=== PATIENT | male | born 1945 | race Caucasian/White ===

== ENCOUNTER 2020-01-25 11:01 | Emergency (ER) | payer MEDICARE, SELFPAY ==
[2020-01-25 11:20] VITALS: BP 148/69; PULSE 97; RESP 14; TEMP 36.5; O2SAT 95
--- NOTE | 2020-01-25 11:27 | ED.EYEPROB ---
HPI - Eye Problem General Chief complaint: Eye Problems Stated complaint: Swollen Eye Time Seen by Provider: 01/25/20 11:27 Source: patient Mode of arrival: ambulatory Limitations: no limitations History of Present Illness HPI Narrative: 74-year-old man comes in today complaining of bilateral eye itching and yellow drainage and eyelid redness. He states the symptoms started in his right eye 5 days ago in the last couple of days it started in his left eye. He denies changes in vision, headache, fever, cough or cold symptoms, floaters, or recent sick exposures. Has a history of cataract surgery with implants MD chief complaint: eye redness Onset (ago): day(s) (5) Onset description: gradual Duration: constant Location: both eyes Eye Symptoms: itching Place: home Mechanism: none Severity: moderate Associated symptoms: none Treatments Prior to Arrival: none Related Data Allergies Allergy/AdvReac Type Severity Reaction Status Date / Time No Known Allergies Allergy Verified 01/25/20 11:19 Review of Systems Constitutional: Constitutional: Denies chills, Denies fatigue, Denies fever(s) and Denies weakness Eyes: Eyes: Reports as per HPI, Denies change in vision and Denies photophobia ENT: Denies dysphagia, Denies nasal congestion and Denies sore throat Cardiovascular: Cardiovascular: Denies chest pain and Denies radiating jaw, neck or arm pain Respiratory: Respiratory: Denies cough, Denies dyspnea and Denies wheezing Gastrointestinal: Gastrointestinal: Denies abdominal pain, Denies nausea and Denies vomiting Genitourinary: Genitourinary: Denies hematuria, Denies dysuria and Denies urinary frequency Neurologic: Denies vertigo, Denies dizziness and Denies syncope Endocrine: Endocrine: Denies polydipsia and Denies polyuria Hematologic/Lymphatic: Hematologic/Lymphatic: Denies easy bleeding and Denies easy bruising Allergic/Immunologic: Allergic/Immunologic: Denies lip swelling and Denies wheezing PMFSH Past Medical History Medical History Hypertension Type 2 diabetes mellitus Surgical History Surgical History History of phacoemulsification of cataract with intraocular lens implantation Social History Social History Smoking status: Former smoker Alcohol intake: former Substance use: never Exam Const: General: healthy appearing, no acute distress and alert Nutritional Appearance: obese Orientation/consciousness: patient oriented x3 HENMT: Ears: external ears normal, TM's normal bilaterally and EAC's normal Mouth: Yes Normal oral and palatal mucosa present and Yes moist mucous membranes Throat: posterior oropharynx normal and uvula midline Eyes: Conjunctivae: conjunctivae normal Pupils: Equal, round and reactive pupils present EOM: EOMs intact bilaterally Resp: Effort & Inspection: normal respiratory effort and labored Auscultation: clear to auscultation bilaterally, rales, rhonchi and wheezes Cardio: Rate: regular rate Rhythm: regular rhythm Heart sounds: no murmurs Skin: General skin exam: normal color, no jaundice and no pallor Rashes: no rashes Neuro: General: No patient oriented x3, No moves all extremities, No no focal motor deficits and No CN's II-XI intact bilaterally Speech: normal speech Extrem: General: normal to inspection and no clubbing, cyanosis or edema Psych: Appearance: grossly normal and well kempt Mental Status: mental status grossly normal Affect: normal affect Attitude: cooperative Thought content: Yes Normal thought content present Course Vital Signs Vital signs: Vital Signs Temperature 36.5 C 01/25/20 11:20 Pulse Rate 97 01/25/20 11:20 Respiratory Rate 14 01/25/20 11:20 Blood Pressure 148/69 H 01/25/20 11:20 Pulse Oximetry 95 01/25/20 11:20 Temperature 36.5 C 01/25/20 11
[2020-01-25 12:34] VITALS: RESP 15; O2SAT 97
== END 2020-01-25 12:35 | disposition home or self-care (01) ==
PROVIDERS: Emergency Provider Emergency Medicine
DX: H10.33 Unspecified acute conjunctivitis, bilateral (principal)
CPT/HCPCS: 99283

== ENCOUNTER 2024-09-13 13:56 | Emergency (ER) | payer MEDICARE, SELFPAY ==
[2024-09-13 14:00] VITALS: BP 140/82; PULSE 95; RESP 18; TEMP 36.2; O2SAT 98
--- NOTE | 2024-09-13 14:09 | ED.EYEPROB ---
HPI - Eye Problem General Chief complaint: Eye Problems Stated complaint: eye infection Time Seen by Provider: 09/13/24 14:04 History of Present Illness HPI Narrative: Pt awoke this morning with swelling and itching around right eye. Pt says eye feels fine and vision is fine but itches around eye. Pt says it has been watering for a couple of days. Pt denies FB exposure or trauma. Related Data Home Medications ?Medication ?Instructions ?Recorded ?Confirmed ?Last Taken ?Type atorvastatin 80 mg tablet 40 mg PO DAILY 01/25/20 01/25/20 Unknown History carboxymethylcellulose 0.5 1 drp ophthalmic (eye) HS 01/25/20 01/25/20 Unknown History %-glycerin 0.9 % eye drops (Lubricating Drops) glipizide 10 mg tablet 10 mg PO BID 01/25/20 01/25/20 Unknown History insulin glargine 100 unit/mL 21 unit subcut HS 01/25/20 01/25/20 Unknown History subcutaneous solution ipratropium 20 mcg-albuterol 100 1 puff inhalation Q4H PRN 01/25/20 01/25/20 Unknown History mcg/actuation mist for inhalation Shortness Of Breath metformin 1,000 mg tablet 1,000 mg PO BID 01/25/20 01/25/20 Unknown History Allergies Allergy/AdvReac Type Severity Reaction Status Date / Time amoxicillin (From Augmentin) Allergy Rash Verified 09/13/24 14:02 clavulanic acid (From Allergy Rash Verified 09/13/24 14:02 Augmentin) Review of Systems Review of Systems: All systems reviewed & are unremarkable except as noted in HPI and below PMFSH Past Medical History Medical History (Updated 09/13/24 @ 14:08 by Mckenna Reynoso III, DO) Hypertension Type 2 diabetes mellitus Surgical History Surgical History History of phacoemulsification of cataract with intraocular lens implantation Social History Social History Smoking status: Former smoker Alcohol intake: former Substance use: never Exam Const: General: healthy appearing and no acute distress Nutritional Appearance: well nourished Orientation/consciousness: patient oriented x3 Limitations: no limitations Eyes: Conjunctivae: conjunctivae normal Pupils: Equal, round and reactive pupils present EOM: EOMs intact bilaterally Direct Ophthalmoscopy: no photophobia Other: mild periorbital swelling no significant erythema Resp: Effort & Inspection: normal respiratory effort Auscultation: clear to auscultation bilaterally Cardio: Rate: regular rate Rhythm: regular rhythm Course Vital Signs Vital signs: Vital Signs Temperature 97.2 F L 09/13/24 14:00 Pulse Rate 95 09/13/24 14:00 Respiratory Rate 18 09/13/24 14:00 Blood Pressure 140/82 09/13/24 14:00 Pulse Oximetry 98 09/13/24 14:00 Oxygen Delivery Room Air 09/13/24 14:00 Temperature 97.2 F L 09/13/24 14:00 Pulse Rate 95 09/13/24 14:00 Respiratory Rate 18 09/13/24 14:00 Blood Pressure 140/82 09/13/24 14:00 Pulse Oximetry 98 09/13/24 14:00 Oxygen Delivery Room Air 09/13/24 14:00 MDM - Eye Problem MDM Narrative Medical decision making narrative: appears allergic rather dion infectious in nature. will prescribe optivar drops and follow up with pcp. Discharge Plan Discharge Clinical Impression: Acute allergic conjunctivitis of right eye Patient Disposition: Home, Self-Care Condition: Stable Instructions: Antibiotic Form, Conjunctivitis (ED) Patient Language: [place] Citizen Prescriptions: New azelastine 0.05 % drops 1 drp RIGHT EYE BID Qty: 6 0RF No Action ciprofloxacin HCl [Ciloxan] 0.3 % drops See Rx Instructions .ROUTE .COMPLEX Qty: 2.5 0RF Rx Instructions: put 1-2 drps in affected eye(s) every 2hr up to 8 times/day x2days; then 4 times/day x5days atorvastatin 80 mg Tablet 40 mg PO DAILY insulin glargine 100 unit/mL Solution 21 unit SUBCUT HS glipizide 10 mg Tablet 10 mg PO BID metformin 1,000 mg Tablet 1,000 mg PO BID Lubricating Drops 0.5-0.9 % Drops 1 drp OPHTHALMIC (EYE) HS ipratropium-albuterol 20-100 mcg/actuation Mist 1 puff INHALATION Q4H PRN (Reason: Shortness Of Breath) Follow-up/Referrals: [facility] [Primary Care Provider] -
--- NOTE | 2024-09-13 14:16 | PC.NURSE ---
AWAITING REGISTRATION FOR DC
== END 2024-09-13 14:28 | disposition home or self-care (01) ==
LOC: CHSED 14:21
PROVIDERS: Emergency Provider Emergency Medicine
DX: H10.31 Unspecified acute conjunctivitis, right eye (principal); E11.9 Type 2 diabetes mellitus without complications; I10 Essential (primary) hypertension; Z87.891 Personal history of nicotine dependence
CPT/HCPCS: 99283

== ENCOUNTER 2025-09-12 13:47 | Observation (INO) | payer MEDICARE, SELFPAY ==
--- NOTE | ~2025-09-12 | CT_ITS ---
EXAMINATION: CT orbit BI wo con DATE: 09/12/2025 15:05 INDICATION: Right-sided orbital cellulitis TECHNIQUE: Computed tomography (CT) of the bilateral orbits was performed without intravenous contrast. Automated exposure control and iterative reconstruction technique were employed. The dose-length product was 197.00 mGy-cm. COMPARISON: None FINDINGS: Skin thickening and prominent subcutaneous and presacral edema at the right orbit consistent with cellulitis. No post septal inflammatory stranding or abscess. Changes of bilateral intraocular lens replacement. Mucous retention cyst in the right maxillary sinus. Rightward deviation of the nasal septum with right-sided spike which parallels the contours of the turbinates suggests this is developmental. Impacted left maxillary molar. Maxilla is otherwise identical as. IMPRESSION: 1. Preseptal cellulitis at the right orbit. No post septal cellulitis or abscess. Reviewed, dictated and finalized at location A. [facility] IMPRESSION: 1. Preseptal cellulitis at the right orbit. No post septal cellulitis or absces s.
[2025-09-12 13:49] VITALS: BP 146/83; PULSE 92; RESP 18; TEMP 36.5; O2SAT 99
--- NOTE | 2025-09-12 14:31 | ED.EYEPROB ---
HPI - Eye Problem General Chief complaint: Eye Problems Stated complaint: Swollen R. Eye Time Seen by Provider: 09/12/25 13:49 Source: patient Mode of arrival: ambulatory Limitations: no limitations History of Present Illness HPI Narrative: Patient is an 80-year-old male with right eye swelling and redness for the past day. His eye is swollen shut with some pus as well in the area. Minimal pain. Vision not overly decreased but is decreased due to the swelling and unable to open the eyelid. chief complaint: other (Eyelid swelling right side with redness) Onset (ago): day(s) (2) Onset description: gradual and awoke with symptoms Duration: constant and progressively worsening Location: right eye Eye Symptoms: redness, foreign body sensation and decreased vision (To functionality of the swelling of the lids) Place: home Mechanism: none Severity: moderate Severity scale (1-10): 4 If Pain, Quality: burning and other (Foreign body sensation) Context: sore throat Associated symptoms: none Treatments Prior to Arrival: none Related Data Patient tetanus UTD: No (Unknown; no open wounds) Home Medications ?Medication ?Instructions ?Recorded ?Confirmed ?Last Taken ?Type atorvastatin 80 mg tablet 40 mg PO DAILY 01/25/20 01/25/20 Unknown History glipizide 10 mg tablet 10 mg PO BID 01/25/20 01/25/20 Unknown History insulin glargine 100 unit/mL 21 unit subcut HS 01/25/20 01/25/20 Unknown History subcutaneous solution ipratropium 20 mcg-albuterol 100 1 puff inhalation Q4H PRN 01/25/20 01/25/20 Unknown History mcg/actuation mist for inhalation Shortness Of Breath metformin 1,000 mg tablet 1,000 mg PO BID 01/25/20 01/25/20 Unknown History Allergies Allergy/AdvReac Type Severity Reaction Status Date / Time amoxicillin (From Augmentin) Allergy Rash Verified 09/12/25 13:47 clavulanic acid (From Allergy Rash Verified 09/12/25 13:47 Augmentin) Review of Systems Review of Systems: All systems reviewed & are unremarkable except as noted in HPI and below Constitutional: Constitutional: Reports no additional constitutional complaints Eyes: Eyes: Reports no additional eye complaints ENT: Reports system reviewed and no additional complaints, except as documented Cardiovascular: Cardiovascular: Reports no additional cardiovascular complaints Respiratory: Respiratory: Reports no additional respiratory complaints Gastrointestinal: Gastrointestinal: Reports no additional gastrointestinal complaints Genitourinary: Genitourinary: Reports no additional male genitourinary complaints Musculoskeletal: Musculoskeletal: Reports no additional musculoskeletal complaints Integumentary/Breasts: Skin/Breast: Reports system reviewed and no additional complaints, except as docu Neurologic: Reports system reviewed and no additional complaints, except as documented Psychiatric: Psychiatric: Reports no additional psychiatric complaints Endocrine: Endocrine: Reports no additional endocrine complaints Hematologic/Lymphatic: Hematologic/Lymphatic: Reports no additional hematologic/lymphatic complaints Allergic/Immunologic: Allergic/Immunologic: Reports no additional allergic/immunologic complaints [facility] Past Medical History Medical History (Updated 09/12/25 @ 15:31 by William Abdalla MD) Hypertension Type 2 diabetes mellitus Surgical History Surgical History History of phacoemulsification of cataract with intraocular lens implantation Social History Social History Smoking status: Former smoker Alcohol intake: former Substance use: never Exam Const: General: healthy appearing Nutritional Appearance: well nourished Orientation/consciousness: patient oriented x3 HENMT: Head: normal to inspection Ears: external ears normal Face/Nose/Sinus: Normal external nose present Eyes: Conjunctivae: abnormal conjunctivae Pupils: Equal, round and reactive pupils present EOM: EOMs intact bilaterally Direct Ophthalmoscopy: photophobia Other: Right eyelid has erythema of the upper and lower of the lids with puffiness and swelling below the lid on the right; the eyelid is completely swollen shut and the I can barely be pulled apart to look in look out from the eyeball; there is matted thick mucus and pus stuck to the eyelid as well; conjunctiva appears white and normal; no eyeball pain Neck: Neck: normal visual inspection Chest: Chest palpation & inspection: normal inspection of the chest Resp: Effort & Inspection: normal respiratory effort and not labored Auscultation: clear to auscultation bilaterally and no crackles Cardio: Rate: regular rate Rhythm: regular rhythm Heart sounds: no murmurs GI: Inspection: non-distended Auscultation: normal bowel sounds : General: Yes bladder normal to palpation Back/Spine/Pelvis: Back: no CVA tenderness Skin: General skin exam: normal color Rashes: no rashes Wounds: no wounds Neuro: General: patient oriented x3, moves all extremities and no meningeal signs Speech: normal speech Gait exam (Neuro): Normal gait present Extrem: General: normal to inspection Psych: Mental Status: mental status grossly normal Affect: normal affect Attitude: cooperative Course Vital Signs Vital signs: Vital Signs Temperature 36.5 C 09/12/25 13:49 Pulse Rate 92 09/12/25 13:49 Respiratory Rate 18 09/12/25 13:49 Blood Pressure 146/83 H 09/12/25 13:49 Pulse Oximetry 99 09/12/25 13:49 Oxygen Delivery Room Air 09/12/25 13:49 Temperature 36.5 C 09/12/25 13:49 Pulse Rate 92 09/12/25 13:49 Respiratory Rate 18 09/12/25 13:49 Blood Pressure 146/83 H 09/12/25 13:49 Pulse Oximetry 99 09/12/25 13:49 Oxygen Delivery Room Air 09/12/25 13:49 [facility] Narrative Medical decision making narrative: Patient is an 80-year-old male with a right eye swelling and pus correlating with either periorbital cellulitis/preseptal cellulitis or orbital cellulitis. CT scan of the orbits. Final diagnosis is periorbital cellulitis only in the right eye. Due to the fact that is such a significant appearance we will admit the patient for the night observation. Hospitalist accepted. He will get vancomycin and Levaquin. For Differential Diagnosis Differential Diagnosis: Periorbital/preseptal cellulitis of the orbit eyelid, orbital cellulitis Lab Data [facility] Lab Attestation statement: I personally reviewed the patient's lab results. Imaging Data Attestation: I personally reviewed and interpreted this imaging study as follows: Radiologist's impression: ITS Impressions Orbit CT 09/12/25 15:13 IMPRESSION: 1. Preseptal cellulitis at the right orbit. No post septal cellulitis or abscess. Discharge Plan Discharge Clinical Impression: Preseptal cellulitis of right eye Patient Disposition: Acute Care Hospital [facility] Condition: Stable Time of Disposition: 15:54
--- OUTSIDE RECORDS SUMMARY | 2025-09-12 15:54 | XMS_ITS | Clinical Summary ---
Author Organization [facility] Address [address] [place] [address] Care Team Providers Care Oceanographer Physical Name Role Phone Dena Glasgow MD Primary Care Provider Medications metFORMIN ER, OSM, (FORTAMET) 500 MG 24 hr tablet Take 2 tablets (1,000 mg total) by mouth 2 (two) times daily with meals. Active glipiZIDE (GLUCOTROL) 10 MG tablet Take 1 tablet (10 mg total) by mouth 2 (two) times daily before meals. Active atorvastatin (LIPITOR) 10 MG tablet Take 4 tablets (40 mg total) by mouth nightly at bedtime. Active lisinopril (PRINIVIL) 10 MG tablet Take 2 tablets (20 mg total) by mouth daily. Active azelastine (OPTIVAR) 0.05 % ophthalmic solution Place 1 drop into the right eye 2 (two) times daily. Active insulin glargine (LANTUS) 100 UNIT/ML injection (PEN) Inject 28 Units into the skin every morning. Active HYDROcodone-shanda taminophen (NORCO) 5-325 MG tabletIndicatio ns:Acute Pain < 7 Day Supply Take 1 tablet by mouth every 4 (four) hours as needed. Indications: Acute Pain < 7 Day Supply 15 tablet 10/09/2024 Active Active Problems Problem Noted Date Diagnosed Date Back pain 10/08/2024 Social History Tobacco Use Types Packs/Day Years Used Date Smoking Tobacco: Former Cigarettes Smokeless Tobacco: Never Tobacco Cessation:Counseling Given: Not Answered Alcohol Use Standard Drinks/Week Comments Not Currently 0 (1 standard drink = 0.6 oz pur e alcohol) [facility] Utilities Answer Date Recorded In the past 12 months has th e electric, gas, oil, or water company threatened to shut off services in your home? No 10/08/2024 Humiliation, Afraid, Rape, and Kick questionnair e Answer Date Recorded Within the last year, have y ou been afraid of your partner or ex-partner? No 10/08/2024 Within the last year, have y ou been humiliated or emotionally abused in other ways by your partner or ex-partner? No Within the last year, have y ou been kicked, hit, slapped, or otherwise physically hurt by your partner or ex-partner? No 10/08/2024 Within the last year, have y ou been raped or forced to have any kind of sexual activity by your partner or ex-partner? No 10/08/2024 Overall Financial Resource Strain (CARDIA) Answe r Date Recorded How hard is it for you to pa y for the very basics like food, housing, medical care, and heating? Not hard at all 10/08/2024 [facility] - Occupational Stress Questionnaire Answer Date Recorded Do you feel stress - tense, restless, nervous, or anxious, or unable to sleep at night because your mind is troubled all the time - these days? Not at all 10/08/2024 Hunger Vital Sign Answer Date Recorded Within the past 12 months, y ou worried that your food would run out before you got the money to buy more. Never true 10/08/19 25 Within the past 12 months, t he food you bought just didn't last and you didn't have money to get more. Never true 10/08/2024 PRAPARE - Transportation Answer Date Re corded In the past 12 months, has l ack of transportation kept you from medical appointments or from getting medications? No 09/28 In the past 12 months, has l ack of transportation kept you from meetings, work, or from getting things needed for daily living? No 10/08/2024 Housing Stability Vital Sign Answer Angel e Recorded In the last 12 months, was t here a time when you were not able to pay the mortgage or rent on time? No 10/08/2024 In the past 12 months, how m any times have you moved where you were living? 0 10/08/2024 At any time in the past 12 m [facility], were you homeless or living in a mcc (including now)? 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 Gender Identity Not on file Sexual Orientation Not on file Last Filed Vital Signs Vital Sign Reading Time Taken Comments Blood Pressure 179/79 01/09/2025 1:34 PM CDT Pulse 66 01/09/2025 1:34 PM CDT Temperature 36.5 C (97.7 F) 01/09/2025 11:29 AM CDT Respiratory Rate 18 01/09/2025 1:34 PM CDT Oxygen Saturation 93% 01/09/2025 1:34 PM CDT Inhaled Oxygen Concentration - - Weight 88.1 kg (194 lb 4 oz) 01/09/2025 11:29 AM CDT Height 180.3 cm (5' 11) 01/09/2025 11:29 AM CDT Body Mass Index 27.09 01/09/2025 11:29 AM CDT Plan of Treatment Health Maintenance Due Date Last Done Comments DTaP, Tdap and Td Vaccines (1 - Tdap) 1963 Pneumococcal Vaccine: 50+ Years (1 of 1 - PCV) 1994 Zoster Vaccines (1 of 2) 1994 Annual Medicare Wellness Visit 2009 COVID-19 Vaccine ( season) 2025 06/17/2024, 09/16/2023, 02/21/2022, Additional history exists Influenza Adult (#1) 2025 06/17/2024, 07/07/2022, 06/10/2021, Additional history exists RSV Immunization or 60+ Years Completed 09/16/2023 Hepatitis A Vaccines Aged Out No long er eligible based on patient's age to complete this topic Meningococcal B Vaccine Aged Out No l onger eligible based on patient's age to complete this topic Meningococcal Vaccine Aged Out No lola nora eligible based on patient's age to complete this topic RSV Immunizations Under 20 Months Aged Out No longer eligible based on patient's age to complete this topic Insurance MEDICARE [facility] Advance Directives * Full Code (Latest Code Status on File) Date Activated Date Inactivated Comments 10/08/2024 4:53 PM 10/09/2024 5:33 PM Care Teams Oceanographer Physical Relationship Specialty Start Date End Date Dena Glasgwo MD [address] [place] [address] PCP - General INTERNAL MEDICINE 10/08/24
[2025-09-12 16:14] LABS: Hematocrit 40.9 % (37.0-46.0); Hemoglobin 12.6 g/dL (12.4-15.3); Immature Granulocyte Percent A 0.4 % (0.0-0.0); Lymphocytes Absolute Auto 2.26 K/mm3 (1.10-4.50); Mean Corpuscular HGB Conc 30.8 g/dL (32-36); Mean Corpuscular Hemoglobin 26.4 pg (27.0-31.0); Mean Corpuscular Volume 85.7 fL (78.0-102.0); Nucleated Red Blood Cells Absolute Auto 0.00 K/mm3 (0.00-0.00); Nucleated Red Blood Cells Perc 0.0 % (0-0.0); Platelet Count Result 169 K/mm3 (150-420); Red Blood Count 4.77 M/mm3 (4.70-6.10); White Blood Count 7.8 K/mm3 (4.8-10.8)
[2025-09-12] MEDS: levoFLOXacin 500 MG/D5W 100 ML 500 MG/100 ML BAG 100 MG IVPB (16:14)
[2025-09-12 16:15] VITALS: BP 147/79; PULSE 88; RESP 18; O2SAT 96
[2025-09-12 16:25] LABS: Alanine Aminotransferase 21 U/L (6-50); Albumin Level 4.8 g/dL (3.5-5.1); Alkaline Phosphatase 82 U/L (38-126); Anion Gap 14 mmol/L (4-12); Aspartate Amino Transferase 25 U/L (17-59); Bilirubin,Total 0.4 mg/dL (0.2-1.3); Blood Urea Nitrogen 48 mg/dL (9-20); CRP < 0.5 mg/dL (<1.0); Calcium 9.3 mg/dL (8.4-10.2); Carbon Dioxide 19 mmol/L (22-30); Chloride 106 mmol/L (98-107); Estimated CRCL calculation 25 ml/min; Estimated Glomerular Filt Rate 28; Glucose 116 mg/dL (65-110); Osmolality Calculated 301 mOsm/kg (285-295); Sodium 139 mmol/L (137-145); Total Protein 8.4 g/dL (6.3-8.2)
[2025-09-12 16:27] VITALS: BMI 25.8
[2025-09-12 16:27] LABS: Potassium 6.2 mmol/L (3.4-5.0)
[2025-09-12 16:28] VITALS: BP 126/61; PULSE 81; RESP 17; TEMP 36.1; O2SAT 97
--- NOTE | 2025-09-12 16:37 | ADMGEN ---
This patient, Jim Smallwood, was admitted to 2nd Floor Room 210-1. Patient oriented to hospital policies and general routines including ID bracelet, bed and alarms, visiting hours, pain management, procedures, bathroom and other care routines, personal items, smoking policy, room service/diet, and visiting hours. Information on how to activate the Rapid Response Team has been discussed. Patient encouraged to report perceived risks to care and to ask questions if they do not understand what they are told or what they should do.
[2025-09-12 16:47] VITALS: PULSE 81; RESP 17; O2SAT 97
--- OUTSIDE RECORDS SUMMARY | 2025-09-12 16:50 | XMS_ITS | Clinical Summary ---
Author Organization [facility] Address [address] [place] [address] Care Team Providers Care Rotary Cutter Feeder Name Role Phone Dena Glasgow MD Primary [...] drink = 0.6 oz pur e alcohol) [facility] Utilities Answer Date Recorded In the past [...] and heating? Not hard at all 10/08/2024 [facility] - Occupational [...] any time in the past 12 m [facility], were you homeless or living in a residential (including now)? 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
[2025-09-12 17:21] LABS: Anion Gap 16 mmol/L (4-12); Blood Urea Nitrogen 49 mg/dL (9-20); Calcium 9.1 mg/dL (8.4-10.2); Carbon Dioxide 16 mmol/L (22-30); Chloride 106 mmol/L (98-107); Estimated CRCL calculation 26 ml/min; Estimated Glomerular Filt Rate 29; Glucose 124 mg/dL (65-110); Osmolality Calculated 300 mOsm/kg (285-295); Sodium 138 mmol/L (137-145)
[2025-09-12 17:23] LABS: Potassium 6.1 mmol/L (3.4-5.0)
[2025-09-12] MEDS: SODIUM CHLORIDE 0.9% IV 1,000 ML 999 ML IV CONT (18:13)
[2025-09-12] MEDS: DEXTROSE 50% 25 GM/50 ML SYRINGE IV PUSH (18:20)
[2025-09-12] MEDS: FUROSEMIDE INJ 40 MG/4 ML VIAL 20 MG IV PUSH (18:21)
[2025-09-12] MEDS: INSULIN HUMAN REGULAR (*BKC) 1,000 UNITS/10 ML VIAL 10 UNITS IV PUSH (18:26)
[2025-09-12] MEDS: VANCOMYCIN 1,250 MG/NS 250 ML 1,250 MG/250 ML BAG 166.67 MG IVPB (18:26)
[2025-09-12 18:42] LABS: Anion Gap 12 mmol/L (4-12); Blood Urea Nitrogen 48 mg/dL (9-20); Calcium 8.7 mg/dL (8.4-10.2); Carbon Dioxide 18 mmol/L (22-30); Chloride 104 mmol/L (98-107); Estimated CRCL calculation 27 ml/min; Estimated Glomerular Filt Rate 31; Glucose 332 mg/dL (65-110); Osmolality Calculated 303 mOsm/kg (285-295); Sodium 134 mmol/L (137-145)
[2025-09-12 18:45] LABS: Potassium 6.4 mmol/L (3.4-5.0)
[2025-09-12 20:00] VITALS: PULSE 68
[2025-09-12] MEDS: TAMSULOSIN HCL 0.4 MG CAPSULE PO (20:17)
[2025-09-12 21:19] LABS: Anion Gap 11 mmol/L (4-12); Blood Urea Nitrogen 48 mg/dL (9-20); Calcium 8.8 mg/dL (8.4-10.2); Carbon Dioxide 19 mmol/L (22-30); Chloride 108 mmol/L (98-107); Estimated CRCL calculation 27 ml/min; Estimated Glomerular Filt Rate 30; Glucose 136 mg/dL (65-110); Osmolality Calculated 300 mOsm/kg (285-295); Potassium 5.7 mmol/L (3.4-5.0); Sodium 138 mmol/L (137-145)
[2025-09-12] MEDS: SODIUM ZIRCONIUM CYCLOSILICATE 5 GM POWD.PACK 10 GM PO (22:43)
[2025-09-12] MEDS: SODIUM CHLORIDE 0.9% IV 1,000 ML 100 ML IV CONT (22:48)
[2025-09-13] VITALS: BP 127/64; PULSE 68; PULSE 70; RESP 18; TEMP 36.1; O2SAT 94
[2025-09-13 04:00] VITALS: PULSE 66
[2025-09-13 05:23] LABS: Hematocrit 37.7 % (37.0-46.0); Hemoglobin 11.6 g/dL (12.4-15.3); Immature Granulocyte Percent A 0.3 % (0.0-0.0); Immature Platelet Fraction Pct 7.4 % (1.0-7.0); Lymphocytes Absolute Auto 1.57 K/mm3 (1.10-4.50); Mean Corpuscular HGB Conc 30.8 g/dL (32-36); Mean Corpuscular Hemoglobin 26.8 pg (27.0-31.0); Mean Corpuscular Volume 87.1 fL (78.0-102.0); Nucleated Red Blood Cells Absolute Auto 0.00 K/mm3 (0.00-0.00); Nucleated Red Blood Cells Perc 0.0 % (0-0.0); Platelet Count Result 96 K/mm3 (150-420); Red Blood Count 4.33 M/mm3 (4.70-6.10); White Blood Count 6.2 K/mm3 (4.8-10.8)
[2025-09-13 05:36] LABS: Alanine Aminotransferase 17 U/L (6-50); Albumin Level 3.9 g/dL (3.5-5.1); Alkaline Phosphatase 66 U/L (38-126); Anion Gap 14 mmol/L (4-12); Aspartate Amino Transferase 21 U/L (17-59); Bilirubin,Total 0.3 mg/dL (0.2-1.3); Blood Urea Nitrogen 46 mg/dL (9-20); Calcium 8.7 mg/dL (8.4-10.2); Carbon Dioxide 17 mmol/L (22-30); Chloride 111 mmol/L (98-107); Estimated CRCL calculation 28 ml/min; Estimated Glomerular Filt Rate 31; Glucose 80 mg/dL (65-110); Osmolality Calculated 304 mOsm/kg (285-295); Potassium 5.1 mmol/L (3.4-5.0); Sodium 142 mmol/L (137-145); Total Protein 6.7 g/dL (6.3-8.2)
[2025-09-13 08:00] VITALS: BP 144/65; PULSE 63; PULSE 66; RESP 20; TEMP 36.3; O2SAT 96
[2025-09-13] MEDS: SODIUM CHLORIDE 0.9% IV 1,000 ML 100 ML IV CONT (08:28)
[2025-09-13] MEDS: FERROUS SULFATE 325 MG TABLET BY MOUTH (08:30)
[2025-09-13] MEDS: ATORVASTATIN 40 MG TABLET PO (08:30)
[2025-09-13] MEDS: INSULIN GLARGINE (*BKC) 1,000 UNITS/10 ML VIAL 22 UNITS SUB-Q (08:42)
[2025-09-13] MEDS: NEOMYCIN/POLYMYXIN/DEXAMETH OP SUSP 5 ML BTL 2 DROP RIGHT EYE ×2 (10:21→13:03)
[2025-09-13] MEDS: SODIUM ZIRCONIUM CYCLOSILICATE 5 GM POWD.PACK 10 GM PO (10:21)
--- NOTE | 2025-09-13 11:02 | P.SS_ITS ---
Same Day Admit/Disch: HPI History of Present Illness Chief complaint: Swollen red right eye Narrative: Jim Smallwood is a 80 year old male who presented to the emergency department with complaints of swollen red eye. patient reported that he has had increased redness and worsening swelling to his right eye for the last few days. Patient did deny minimal pain and no visual changes. patient also denied any fevers, chills, shortness a breath chest pain nausea or vomiting. patient reported past medical history of HLD, anemia, diabetes, HTN, and BPH. patient denied any trauma to I but did report some sinus pressure prior to the development of his eye swelling and redness. In the ED: Patient with significant swelling and redness to the right eye, normal WBC, Cr 2.11 and potassium of 6.4 other labs unremarkable. Orbit CT shows preseptal cellulitis at the right orbit no postseptal cellulitis or abscess. Patient was started on Vanc and Levaquin in the emergency department as well as eyedrops and admitted to the medical unit overnight to monitor for improvement. [facility] Past Medical History Medical History Hypertension Type 2 diabetes mellitus Surgical History Surgical History History of phacoemulsification of cataract with intraocular lens implantation Social History Social History Smoking status: Never smoker Second hand tobacco smoke exposure: No Alcohol intake: never Substance use: never Substance use type: does not use Lack of Transportation: No Lack of Food: Never True Current Housing: I Have Housing Concerned About Future Housing: No Difficulty Paying Gas/Electric Bills: No Difficulty Paying for Meds: No Currently Unemployed: No Education: High School Diploma/GED Difficulty w/ Childcare or Family Care: No Spiritual care concerns: No Same Day Admit/Disch: Med Pre-admit Medications Home Medications ?Medication ?Instructions ?Recorded ?Confirmed ?Type atorvastatin 80 mg tablet 40 mg PO DAILY 01/25/2008/28 History glipizide 10 mg tablet 10 mg PO BID 01/25/20 History insulin glargine 100 unit/mL 27 unit subcut HS 0 09/12/25 History subcutaneous solution metformin 1,000 mg tablet 1,000 mg PO BID 01/25/20 History ferrous sulfate 325 mg (65 mg 325 mg PO DAILY 09/12/25 09/12/25 History iron) tablet lisinopril 20 mg tablet 20 mg PO DAILY 09/12/2508/28 History mecobalamin (vitamin B12) 5,000 5,000 mcg PO DAILY 09/12/25 History mcg disintegrating tablet tamsulosin 0.4 mg capsule 0.4 mg PO .pm 09/12/2509/12 History levofloxacin 750 mg tablet 750 mg PO Q48H #6 tabs 08/28 04/21 Rx nsnqkqfa-gqrngquci-fqfmdyvq 3.5 2 drp RIGHT EYE QID #5 mL 09/13/25 Rx mg/mL-10,000 unit/mL-0.1% eye drops Review of Systems Review of Systems All systems reviewed & are unremarkable except as noted in HPI and below Exam Const: General: comfortable and no acute distress Eyes: Visual Marcum: normal visual marcum by confrontation Periorbital: periorbital findings abnormal right periorbital swelling, periorbital tenderness and periorbital erythema Eyelids: eyelid abnormality right upper eyelid erythema and swelling Conjunctivae: conjunctival abnormality right discharge Cornea: corneas abnormal on the right Resp: Effort & Inspection: normal respiratory effort Auscultation: clear to auscultation bilaterally Cardio: Rate: regular rate Rhythm: regular rhythm GI: GI Palp: Yes Soft to palpation Auscultation: normal bowel sounds Other: rounded Skin: General skin exam: normal color and no rashes or lesions noted Wounds: no wounds Neuro: General: gait normal Speech: normal speech Motor exam (neuro): 5/5 motor strength present throughout Sensory Exam: normal sensation Extrem: General: normal to inspection Psych: Mental Status: mental status grossly normal Affect: normal affect DS: Data Data Completed and Pending Labs on day of discharge: Labs from last 24 hours 09/13/25 09/13/25 09/13/25 05:08 05:08 05:08 WBC RBC Hgb Hct MCV MCH MCHC RDW Plt Count MPV Immature Gran % (Auto) Neut % (Auto) Lymph % (Auto) [place] % (Auto) Eos % (Auto) Baso % (Auto) Lymph # (Auto) [place] # (Auto) Eos # (Auto) Baso # (Auto) Abs Immat Gran (auto) Absolute Neuts (auto) Absolute Nucleated RBC Nucleated RBC % % Immature Plt Fraction Sodium Potassium Chloride Carbon Dioxide Anion Gap BUN Creatinine 2.04 H Estim Creat Clear Calc 28 Cancelled Estimated GFR 31 L Cancelled Glucose 80 POC Capillary Glucose Calculated Osmolality 304 H Lactic Acid Calcium 8.7 Total Bilirubin 0.3 AST 21 ALT 17 Alkaline Phosphatase 66 C-Reactive Protein Total Protein 6.7 Albumin 3.9 09/13/25 09/12/25 09/12/25 05:08 21:01 20:33 WBC 6.2 RBC 4.33 L Hgb 11.6 L Hct 37.7 MCV 87.1 MCH 26.8 L MCHC 30.8 L RDW 13.8 Plt Count 96 L MPV 11.2 H Immature Gran % (Auto) 0.3 H Neut % (Auto) 59.1 Lymph % (Auto) 25.2 Sterling % (Auto) 8.5 Eos % (Auto) 5.9 Baso % (Auto) 1.0 Lymph # (Auto) 1.57 Sterling # (Auto) 0.53 Eos # (Auto) 0.37 Baso # (Auto) 0.06 Abs Immat Gran (auto) 0.02 H Absolute Neuts (auto) 3.67 Absolute Nucleated RBC 0.00 Nucleated RBC % 0.0 % Immature Plt Fraction 7.4 H Sodium 142 138 Potassium 5.1 H 5.7 H Chloride 111 H 108 H Carbon Dioxide 17 L 19 L Anion Gap 14 H 11 BUN 46 H 48 H Creatinine Cancelled 2.11 H Estim Creat Clear Calc 27 Estimated GFR 30 L Glucose 136 H POC Capillary Glucose 156 H Calculated Osmolality 300 H Lactic Acid Calcium 8.8 Total Bilirubin AST ALT Alkaline Phosphatase C-Reactive Protein Total Protein Albumin 09/12/25 09/12/25 09/12/25 18:25 17:01 16:08 WBC 7.8 RBC 4.77 Hgb 12.6 Hct 40.9 MCV 85.7 MCH 26.4 L MCHC 30.8 L RDW 13.9 Plt Count 169 MPV 10.6 Immature Gran % (Auto) 0.4 H Neut % (Auto) 58.2 Lymph % (Auto) 29.1 Sterling % (Auto) 6.8 Eos % (Auto) 4.6 Baso % (Auto) 0.9 Lymph # (Auto) 2.26 Sterling # (Auto) 0.53 Eos # (Auto) 0.36 Baso # (Auto) 0.07 Abs Immat Gran (auto) 0.03 H Absolute Neuts (auto) 4.52 Absolute Nucleated RBC 0.00 Nucleated RBC % 0.0 % Immature Plt Fraction Sodium 134 L 138 139 Potassium 6.4 H* 6.1 H* 6.2 H* Chloride 104 106 106 Carbon Dioxide 18 L 16 L 19 L Anion Gap 12 16 H 14 H BUN 48 H 49 H 48 H Creatinine 2.05 H 2.19 H 2.23 H Estim Creat Clear Calc 27 26 25 Estimated GFR 31 L 29 L 28 L Glucose 332 H 124 H 116 H POC Capillary Glucose Calculated Osmolality 303 H 300 H 301 H Lactic Acid 1.7 Calcium 8.7 9.1 9.3 Total Bilirubin 0.4 AST 25 ALT 21 Alkaline Phosphatase 82 C-Reactive Protein < 0.5 Total Protein 8.4 H Albumin 4.8 Imaging Attestation: I personally reviewed and interpreted this imaging study as follows: Radiologist's impression: EXAMINATION: CT orbit BI wo con DATE: 09/12/2025 15:05 INDICATION: Right-sided orbital cellulitis TECHNIQUE: Computed tomography (CT) of the bilateral orbits was performed without intravenous contrast. Automated exposure control and iterative reconstruction technique were employed. The dose-length product was 197.00 mGy- cm. COMPARISON: None FINDINGS: Skin thickening and prominent subcutaneous and presacral edema at the right orbit consistent with cellulitis. No post septal inflammatory stranding or abscess. Changes of bilateral intraocular lens replacement. Mucous retention cyst in the right maxillary sinus. Rightward deviation of the nasal septum with right-sided spike which parallels the contours of the turbinates suggests this is developmental. Impacted left maxillary molar. Maxilla is otherwise identical as. IMPRESSION: 1. Preseptal cellulitis at the right orbit. No post septal cellulitis or abscess. Reviewed, dictated and finalized at location A. TRUCTION JOB TITLES DS: Summary Hospital Course Reason for hospitalization: periorbital cellulitis Hospital Course: Admission: Jim Smallwood is a 80 year old male who presented to the emergency department with complaints of swollen red eye. patient reported that he has had increased redness and worsening swelling to his right eye for the last few days. Patient did deny minimal pain and no visual changes. patient also denied any fevers, chills, shortness a breath chest pain nausea or vomiting. patient reported past medical history of HLD, anemia, diabetes, HTN, and BPH. patient denied any trauma to I but did report some sinus pressure prior to the development of his eye swelling and redness. Hospital course: In the ED: Patient with significant swelling and redness to the right eye, normal WBC, Cr 2.11 and potassium of 6.4 other labs unremarkable. Orbit CT shows preseptal cellulitis at the right orbit no postseptal cellulitis or abscess. Patient was started on Vanc and Levaquin in the emergency department as well as eyedrops and admitted to the medical unit overnight to monitor for improvement. Patient seen the following day with overall improvement to symptoms swelling, erythema decreased with medication. Patient denied any visual changes and minimal pain. Patient was able to open his eye with minimal drainage. Labs were reviewed with normal WBC. Patient potassium was elevated on admission at 6.4 had received insulin and Lokelma with improvement to potassium at 5.1 did give patient 1 more dose of Lokelma. spoke with patient regarding his current diabetes medications and recommended discontinuation of his glipizide and metformin due to his chronic kidney disease reported he will follow-up with his primary care physician at the [facility] next month. patient has allergy to Augmentin he was discharged on oral Levaquin 750 mg every 48 hours for renal dosing. Patient acknowledged and agreed with discharge plan. patient feeling better with no acute distress or complaints at time of discharge. Status at Discharge Functional status at discharge: independent ambulation Overall status at discharge: patient is progressing back to baseline Time Spent with Patient Time attestation: Total time spent providing and/or coordinating discharge services: Time spent: Greater than 30 minutes DS: Admitting Diagnosis Discharge Date 09/13/2025 Admitting Diagnosis periorbital cellulitis DS: Discharge Diagnosis Discharge Diagnosis (1) Preseptal cellulitis of right eye: Code(s): L03.213 - Periorbital cellulitis Status: Acute (2) Type 2 diabetes mellitus: Code(s): E11.9 - Type 2 diabetes mellitus without complications Status: Acute (3) Hypertension: Code(s): I10 - Essential (primary) hypertension Status: Acute Discharge Plan Discharge Attending physician on discharge: Romario Crawford Consulting providers: Ayana Burch Discharging Clinician: Ayana Burch Anticipated Discharge Date/Time: 09/13/25 11:10 Patient Disposition: Home Activity: as tolerated Diet: diabetic Discharge Instructions: 1). periorbital cellulitis right eye * I have prescribed oral antibiotic please take as indicated and complete antibiotic therapy even if feeling better * I have also ordered some eyedrops to help with minimal pain * if at any time swelling worsens and visual changes occur seek medical attention 2). diabetes * I would recommend to discontinue your metformin and glipizide due to chronic kidney disease and recent hyperkalemia, recommend starting a sliding scale short-acting insulin with meals for replacement. This can be followed up with your primary care physician at the [facility] How can you care for yourself at home? ? Keep track of any new symptoms or changes in your symptoms. ? Rest until you feel better. ? Be safe with medicines. Take your medicines exactly as prescribed. Call your doctor if you think you are having a problem with your medicine. ? Do not drive after taking a prescription pain medicine. ? Ensure to follow-up with primary care physician as indicated and provide updated medication list provided to you at discharge. When should you call for help? Call 911 anytime you think you may need emergency care. For example, call if: ? You passed out (lost consciousness). Call your doctor now or seek immediate medical care if: ? You have new symptoms like fever, difficulty breathing, Chest pain, vomiting, or rash. ? You have new or different pain. ? You are confused and are having trouble thinking clearly. ? Your symptoms are getting worse. Watch closely for changes in your health, and be sure to contact your doctor if: ? You do not get better as expected. Patient Instructions: Antibiotic Form Patient Language: Chadian Stand Alone Forms: General Discharge Information Follow-up/Referrals: [facility] [Primary Care Provider, Medical] - Keep Reg. Scheduled Appt. Discharge Medications: New neomycin-polymyxin B-dexameth 3.5mg/mL-10,000 unit/mL-0.1 % Drops,Suspension 2 drp RIGHT EYE QID Qty: 5 0RF levofloxacin 750 mg tablet 750 mg PO Q48H Qty: 6 0RF Rx Instructions: Take one tablet every other day for 6 doses Continued atorvastatin 80 mg Tablet 40 mg PO DAILY insulin glargine 100 unit/mL Solution 27 unit SUBCUT HS glipizide 10 mg Tablet 10 mg PO BID tamsulosin 0.4 mg capsule 0.4 mg PO .pm lisinopril 20 mg tablet 20 mg PO DAILY mecobalamin (vitamin B12) 5,000 mcg tablet,disintegrating 5,000 mcg PO DAILY ferrous sulfate 325 mg (65 mg iron) tablet 325 mg PO DAILY Held metformin 1,000 mg Tablet 1,000 mg PO BID Hold Instructions: Resume on 09/16/25. Hold for 72 Date of admission: 09/12/25 15:50 Primary Care Provider: CHERRIE STRICKLANDKACY Admitting Provider: Romario Crawford Attending physician on admission: Romario Crawford Condition: Stable Quality -Patient's previous records reviewed on admission -ER notes reviewed in detail on admission -discussed all findings and current treatment plan with patient/Family/POA -Consultations reviewed for recommendations -Patient's disposition for safe discharge discussed with employment evaluator/case manager -radiology imaging, EKG and test results I have personally reviewed and interpreted unless otherwise specified Dictation performed by [employer] direct speech recognition software, therefore post secondary professional variants and typographical errors may occur. Hospitalist MIPS Advance Care Plan I have confirmed that the patient's Advanced Care Plan is present, code status is documented, or surrogate decision maker is listed in patient medical record.: Yes Medication Reconciliation I have utilized all available resources to obtain, update and review the patients current medications (includes all prescriptions, OTC, herbals, cannabis, and nutritional supplements).: Yes The patient is not eligible for med reconciliation; the patient is in a emergent medical situation where delaying treatment would jeopardize the patients health.: No Heart Failure (Exclusion) Patient has history of Heart Transplant or Left Ventricular Assistive Device?: No IF YES, STOP HERE Heart Failure (Qualifier) Patient has current or prior documentation of LVEF less than or equal to 40%, or mod/servere depressed LVSF?: No IF NO, STOP HERE
[2025-09-13 12:00] VITALS: PULSE 63
--- NOTE | 2025-09-13 13:20 | PC.NURSE ---
Dischargeinstructions reviewed with patient, patient verbalizes understanding. Patient dressed himself,taken bt wheelchair off floor to private vehicle
--- NOTE | 2025-09-15 09:37 | PC.NURSE ---
discharge call back complete, doing well, swelling less to eye, decreased the muscle milk and liquid IV he was taking due to elevated potassium, no questions regarding discharge instructions
== END 2025-09-13 13:20 | disposition home or self-care (01) ==
LOC: CHSED 15:31 → CHS2ND 15:54
PROVIDERS: Nurse Practitioner Adult Health; Admitting Provider Internal Medicine; Emergency Provider Emergency Medicine; Visit Provider Internal Medicine
DX: L03.213 Periorbital cellulitis (principal); E11.9 Type 2 diabetes mellitus without complications; I10 Essential (primary) hypertension; Z79.4 Long term (current) use of insulin; Z79.84 Long term (current) use of oral hypoglycemic drugs; Z87.891 Personal history of nicotine dependence; Z98.49 Cataract extraction status, unspecified eye; Z96.1 Presence of intraocular lens
CPT/HCPCS: 36415; 70480; 80048; 80053; 82948; 83605; 85025; 85055; 86140; 87040; 96361; 96366; 96367; 96375; 99285; A9270; G0378; J1815; J1938; J1956; J3373; J7030

== ENCOUNTER 2025-09-25 06:27 | Observation (INO) | payer MEDICARE, SELFPAY ==
[2025-09-25] VITALS (21 sets, daily range): BP systolic 103–172; BP diastolic 60–93; PULSE 80–109; RESP 12–25; TEMP 35.3–36.5; O2SAT 92–100; BMI 26.4
--- NOTE | ~2025-09-25 | CT_ITS ---
CT HEAD NON-CONTRAST CT C-SPINE Clinical History: FALL. CONFUSION Comparison: None Technique: Unenhanced axial images skull base to vertex. Coronal, sagittal reformats. Axial images thoracic inlet to skull base. Sagittal and coronal reformats. CT images acquired with automatic exposure control for dose reduction DLP: 681 mGy-cm Findings: Head: Mild white matter changes from chronic microvascular ischemic disease. Sulci, ventricles: Unremarkable. No intracerebral hemorrhage. No evidence acute territorial infarct. No mass effect, midline shift, intra-/extra-axial fluid collection. Bony calvarium intact. Visualized paranasal sinuses: Clear. Mastoid air cells: Clear. C-spine: No acute fracture or listhesis. Vertebral bodies normal height and alignment. Mild degenerative changes. Disc spaces maintained. Prevertebral soft tissues within normal limits. Visualized lung apices: Clear. Visualized thyroid: Unremarkable. No enlarged cervical nodes. IMPRESSION: HEAD: 1. No acute intracranial findings. C-SPINE: 1. No acute fracture. Reviewed, dictated and finalized at location R. T MANAGEMENT LEAD IMPRESSION: HEAD: 1. No acute intracranial findings. C-SPINE: 1. No acute fracture.
--- NOTE | ~2025-09-25 | XR_ITS ---
Examination: XR chest 1V portable Clinical History: FALL. CONFUSION. Comparison: None Technique: Portable AP Findings: Heart size normal. Streaky bibasilar atelectasis. No acute bony abnormality. IMPRESSION: 1. No significant acute cardiopulmonary findings given portable technique. Reviewed, dictated and finalized at location R. AL MOLD MAKER
--- NOTE | 2025-09-25 06:38 | ECG_ITS ---
Test Date: 2025-09-25 07:10:36 Measurements Intervals [place] Rate: 89 P: 0 MT: 0 QRS: -69 QRSD: 137 T: 53 QT: 360 QTc: 439 Interpretive Statements PROBABLY ATRIAL FIBRILLATION (SIGNIFICANT BASELINE ARTIFACT) RIGHT BUNDLE BRANCH BLOCK LEFT ANTERIOR FASCICULAR BLOCK BASELINE ARTIFACT- I, II, III, AVR, AVL, AVF, V1-V6 ABNORMAL ECG No previous ECG available for comparison Electronically Signed On 09-25-2025 09:01:46 POWDER OPERATOR by Ryan Steven D.O.
--- NOTE | 2025-09-25 06:48 | ED.AMS ---
HPI - Altered Mental Status General Chief Complaint: Altered Mental Status <William Abdalla MD - Last Filed: 09/25/25 07:07> Stated Complaint: fall & confusion <William Abdalla MD - Last Filed: 09/25/25 07:07> Time Seen by Provider: 09/25/25 06:38 <William Abdalla MD - Last Filed: 09/25/25 07:07> Source: patient and EMS <William Abdalla MD - Last Filed: 09/25/25 07:07> Mode of arrival: EMS <William Abdalla MD - Last Filed: 09/25/25 07:07> Limitations: altered mental status <William Abdalla MD - Last Filed: 09/25/25 07:07> History of Present Illness HPI narrative: Patient is a 80-year-old male found on the floor this morning for an amount of time unknown and EMS found blood sugar to be 69 and D10 was started. His speech was somewhat garbled when EMS arrived but sugar was low and they started D10. Further he has a bump on his head with an abrasion of unclear etiology. He does take insulin but in the morning typically. He is on a a few different diabetic medications. Initial exam shows a fast exam to be negative. Urine incontinent this morning after found on the floor. Possibly a vasovagal or similar syncopal episode. Seizure not ruled out. <William Abdalla MD - Last Filed: 09/25/25 07:07> Patient is a 80-year-old male found on the floor this morning for an amount of time unknown and EMS found blood sugar to be 69 and D10 was started. His speech was somewhat garbled when EMS arrived but sugar was low and they started D10. Further he has a bump on his head with an abrasion of unclear etiology. He does take insulin but in the morning typically. He is on a a few different diabetic medications. Initial exam shows a fast exam to be negative. Urine incontinent this morning after found on the floor. Possibly a vasovagal or similar syncopal episode. Seizure not ruled out. Patient's son came to the ED telling us that patient had no heater at home since last night. <Juan Cassidy MD - Last Filed: 09/25/25 09:47> MD complaint: altered mental status and decreased responsiveness <William Abdalla MD - Last Filed: 09/25/25 07:07> Onset (ago): unknown <William Abdalla MD - Last Filed: 09/25/25 07:07> Timing confirmed by: other (Last known well is unknown) <William Abdalla MD - Last Filed: 09/25/25 07:07> Severity: moderate <William Abdalla MD - Last Filed: 09/25/25 07:07> Consistency of symptoms: getting Worse <William Abdalla MD - Last Filed: 09/25/25 07:07> Context: diabetes <William Abdalla MD - Last Filed: 09/25/25 07:07> Associated symptoms: denies other symptoms, malaise, foul smelling urine and incontinence (Urine) <William Abdalla MD - Last Filed: 09/25/25 07:07> Treatments prior to arrival: glucose and oxygen <William Abdalla MD - Last Filed: 09/25/25 07:07> Related Data Home Medications: Home Medications ?Medication ?Instructions ?Recorded ?Confirmed ?Last Taken ?Type atorvastatin 80 mg tablet 40 mg PO DAILY 01/25/20 09/12/25 Unknown History glipizide 10 mg tablet 10 mg PO BID 01/25/20 09/12/25 Unknown History insulin glargine 100 unit/mL 27 unit subcut HS 01/25/20 09/12/25 Unknown History subcutaneous solution metformin 1,000 mg tablet 1,000 mg PO BID 01/25/20 09/12/25 Unknown History Held on 09/13/25. Instructions: Resume on 09/16/25. Hold for 72 ferrous sulfate 325 mg (65 mg 325 mg PO DAILY 09/12/25 09/12/25 Unknown History iron) tablet lisinopril 20 mg tablet 20 mg PO DAILY 09/12/25 09/12/25 Unknown History mecobalamin (vitamin B12) 5,000 5,000 mcg PO DAILY 09/12/25 09/12/25 Unknown History mcg disintegrating tablet tamsulosin 0.4 mg capsule 0.4 mg PO .pm 09/12/25 09/12/25 Unknown History <William Abdalla MD - Last Filed: 09/25/25 07:07> Allergies/Adverse Reactions: Allergies Allergy/AdvReac Type Severity Reaction Status Date / Time amoxicillin (From Augmentin) Allergy Rash Verified 09/25/25 06:40 clavulanic acid (From Allergy Rash Verified 09/25/25 06:40 Augmentin) <William Abdalla MD - Last Filed: 09/25/25 07:07> Review of Systems Review of Systems: All systems reviewed & are unremarkable except as noted in HPI and below <William Abdalla MD - Last Filed: 09/25/25 07:07> Constitutional: Constitutional: Reports no additional constitutional complaints <William Abdalla MD - Last Filed: 09/25/25 07:07> Eyes: Eyes: Reports no additional eye complaints <William Abdalla MD - Last Filed: 09/25/25 07:07> ENT: Reports system reviewed and no additional complaints, except as documented <William Abdalla MD - Last Filed: 09/25/25 07:07> Cardiovascular: Cardiovascular: Reports no additional cardiovascular complaints <William Abdalla MD - Last Filed: 09/25/25 07:07> Respiratory: Respiratory: Reports no additional respiratory complaints <William Abdalla MD - Last Filed: 09/25/25 07:07> Gastrointestinal: Gastrointestinal: Reports no additional gastrointestinal complaints <William Abdalla MD - Last Filed: 09/25/25 07:07> Genitourinary: Genitourinary: Reports no additional male genitourinary complaints <William Abdalla MD - Last Filed: 09/25/25 07:07> Musculoskeletal: Musculoskeletal: Reports no additional musculoskeletal complaints <William Abdalla MD - Last Filed: 09/25/25 07:07> Integumentary/Breasts: Skin/Breast: Reports system reviewed and no additional complaints, except as docu <William Abdalla MD - Last Filed: 09/25/25 07:07> Neurologic: Reports system reviewed and no additional complaints, except as documented <William Abdalla MD - Last Filed: 09/25/25 07:07> Psychiatric: Psychiatric: Reports no additional psychiatric complaints <William Abdalla MD - Last Filed: 09/25/25 07:07> Endocrine: Endocrine: Reports no additional endocrine complaints <William Abdalla MD - Last Filed: 09/25/25 07:07> Hematologic/Lymphatic: Hematologic/Lymphatic: Reports no additional hematologic/lymphatic complaints <William Abdalla MD - Last Filed: 09/25/25 07:07> Allergic/Immunologic: Allergic/Immunologic: Reports no additional allergic/immunologic complaints <William Abdalla MD - Last Filed: 09/25/25 07:07> PMFSH Past Medical History Medical History: Medical History (Updated 09/25/25 @ 09:47 by Juan Cassidy MD) Hypertension Type 2 diabetes mellitus <William Abdalla MD - Last Filed: 09/25/25 07:07> Surgical History Surgical History: Surgical History History of phacoemulsification of cataract with intraocular lens implantation <William Abdalla MD - Last Filed: 09/25/25 07:07> Social History Social History: Social History Smoking status: Never smoker Second hand tobacco smoke exposure: No Alcohol intake: never Substance use: never Substance use type: does not use Lack of Transportation: No Lack of Food: Never True Current Housing: I Have Housing Concerned About Future Housing: No Difficulty Paying Gas/Electric Bills: No Difficulty Paying for Meds: No Currently Unemployed: No Education: High School Diploma/GED Difficulty w/ Childcare or Family Care: No Spiritual care concerns: No <William Abdalla MD - Last Filed: 09/25/25 07:07> Exam Const: General: no acute distress and ill appearing <William Abdalla MD - Last Filed: 09/25/25 07:07> Nutritional Appearance: well nourished <William Abdalla MD - Last Filed: 09/25/25 07:07> Nutritional Appearance: thin <Juan Cassidy MD - Last Filed: 09/25/25 09:47> Orientation/consciousness: patient oriented x3 <William Abdalla MD - Last Filed: 09/25/25 07:07> Limitations: no limitations <William Abdalla MD - Last Filed: 09/25/25 07:07> Other: He has called at this time <William Abdalla MD - Last Filed: 09/25/25 07:07> HENMT: Head: normal to inspection <William Abdalla MD - Last Filed: 09/25/25 07:07> Ears: external ears normal <William Abdalla MD - Last Filed: 09/25/25 07:07> Face/Nose/Sinus: Normal external nose present <William Abdalla MD - Last Filed: 09/25/25 07:07> Eyes: Conjunctivae: conjunctivae normal <William Abdalla MD - Last Filed: 09/25/25 07:07> Pupils: Equal, round and reactive pupils present <William Abdalla MD - Last Filed: 09/25/25 07:07> EOM: EOMs intact bilaterally <William Abdalla MD - Last Filed: 09/25/25 07:07> Neck: Neck: normal visual inspection, no lymphadenopathy and no meningeal signs <William Abdalla MD - Last Filed: 09/25/25 07:07> Chest: Chest palpation & inspection: normal inspection of the chest <William Abdalla MD - Last Filed: 09/25/25 07:07> Resp: Effort & Inspection: normal respiratory effort and not labored <William Abdalla MD - Last Filed: 09/25/25 07:07> Auscultation: clear to auscultation bilaterally and no crackles <William Abdalla MD - Last Filed: 09/25/25 07:07> Cardio: Rate: regular rate <William Abdalla MD - Last Filed: 09/25/25 07:07> Rhythm: regular rhythm <William Abdalla MD - Last Filed: 09/25/25 07:07> Heart sounds: no murmurs <William Abdalla MD - Last Filed: 09/25/25 07:07> GI: Inspection: non-distended <William Abdalla MD - Last Filed: 09/25/25 07:07> GI Palp: Yes Soft to palpation and No Tenderness to palpation present (GI) <Willima Abdalla MD - Last Filed: 09/25/25 07:07> Auscultation: normal bowel sounds <William Abdalla MD - Last Filed: 09/25/25 07:07> : General: Yes bladder normal to palpation <William Abdalla MD - Last Filed: 09/25/25 07:07> Back/Spine/Pelvis: Back: no CVA tenderness <William Abdalla MD - Last Filed: 09/25/25 07:07> Skin: General skin exam: normal color <William Abdalla MD - Last Filed: 09/25/25 07:07> Rashes: no rashes <William Abdalla MD - Last Filed: 09/25/25 07:07> Wounds: wound noted <William Abdalla MD - Last Filed: 09/25/25 07:07> Other: Right frontal scalp has a new abrasion <William Abdalla MD - Last Filed: 09/25/25 07:07> Neuro: General: patient oriented x3, moves all extremities, no meningeal signs, no focal motor deficits and CN's II-XI intact bilaterally <William Abdalla MD - Last Filed: 09/25/25 07:07> Cranial nerves: Yes Nystagmus not present <William Abdalla MD - Last Filed: 09/25/25 07:07> Other: Fast exam negative, NIH score is 0, GCS is 15 <William Abdalla MD - Last Filed: 09/25/25 07:07> Extrem: General: normal to inspection, no clubbing, cyanosis or edema and no pedal edema <William Abdalla MD - Last Filed: 09/25/25 07:07> Psych: Mental Status: mental status grossly normal <William Abdalla MD - Last Filed: 09/25/25 07:07> Affect: normal affect <William Abdalla MD - Last Filed: 09/25/25 07:07> Attitude: cooperative <William Abdalla MD - Last Filed: 09/25/25 07:07> Other: Initially his mental status was not good with low sugar however it increased as D10 was infusing and back to baseline at this time <William Abdalla MD - Last Filed: 09/25/25 07:07> Course Vital Signs Vital signs: Vital Signs Temperature 35.3 C L 09/25/25 06:27 Pulse Rate 98 09/25/25 06:27 Respiratory Rate 24 H 09/25/25 06:27 Blood Pressure 172/91 H 09/25/25 06:27 Pulse Oximetry 100 09/25/25 06:27 Oxygen Delivery Room Air 09/25/25 06:27 Temperature 35.6 C L 09/25/25 08:44 Pulse Rate 97 09/25/25 07:04 Respiratory Rate 20 09/25/25 07:04 Blood Pressure 141/92 H 09/25/25 07:04 Pulse Oximetry 95 09/25/25 07:04 Oxygen Delivery Room Air 09/25/25 06:55 <William Abdalla MD - Last Filed: 09/25/25 07:07> Vital Signs Temperature 35.3 C L 09/25/25 06:27 Pulse Rate 98 09/25/25 06:27 Respiratory Rate 24 H 09/25/25 06:27 Blood Pressure 172/91 H 09/25/25 06:27 Pulse Oximetry 100 09/25/25 06:27 Oxygen Delivery Room Air 09/25/25 06:27 Temperature 35.6 C L 09/25/25 08:44 Pulse Rate 97 09/25/25 07:04 Respiratory Rate 20 09/25/25 07:04 Blood Pressure 141/92 H 09/25/25 07:04 Pulse Oximetry 95 09/25/25 07:04 Oxygen Delivery Room Air 09/25/25 06:55 <Juan Cassidy MD - Last Filed: 09/25/25 09:47> [facility] MDM Narrative Medical decision making narrative: Patient is an 80-year-old male with altered mental status and found on the floor here for a workup at this time. Last known well unknown. Cardio neuro workup at this time. Shift change at this time and next doctor will take over care of this patient. <William Abdalla MD - Last Filed: 09/25/25 07:07> Patient is an 80-year-old male with altered mental status and found on the floor here for a workup at this time. Last known well unknown. Cardio neuro workup at this time. Shift change at this time and next doctor will take over care of this patient. Workup today showed calcium 5.3, BUN 40, creatinine 2.4 glucose 295, magnesium 1.2, Patient tested negative for COVID flu RSV, CT head and cervical spine without contrast showed no acute abnormality Chest x-ray showed no acute abnormality <Juan Cassidy MD - Last Filed: 09/25/25 09:47> Differential Diagnosis Differential Diagnosis: Stroke, NSTEMI <William Abdalla MD - Last Filed: 09/25/25 07:07> Lab Data Result diagrams: 09/25/25 07:10 09/25/25 07:10 <William Abdalla MD - Last Filed: 09/25/25 07:07> Labs: Lab Results 09/25/25 09/25/25 Range/Units 07:10 07:11 WBC 6.5 (4.8-10.8) K/mm3 RBC 4.59 L (4.70-6.10) M/mm3 Hgb 11.9 L (12.4-15.3) g/dL Hct 39.7 (37.0-46.0) % MCV 86.5 (78.0-102.0) fL MCH 25.9 L (27.0-31.0) pg MCHC 30.0 L (32-36) g/dL RDW 14.4 (11.6-14.4) % Plt Count 134 L (150-420) K/mm3 MPV 10.5 (8.7-11.0) fl Immature Gran % (Auto) 0.3 H (0.0-0.0) % Neut % (Auto) 77.9 H (50.0-70.0) % Lymph % (Auto) 15.8 L (18.0-42.0) % [place] % (Auto) 4.5 (2.0-11.0) % Eos % (Auto) 0.9 L (1.0-6.0) % Baso % (Auto) 0.6 (0.0-1.0) % Lymph # (Auto) 1.03 L (1.10-4.50) K/mm3 [place] # (Auto) 0.29 (0.10-0.90) K/mm3 Eos # (Auto) 0.06 (0.02-0.50) K/mm3 Baso # (Auto) 0.04 (0.00-0.10) K/mm3 Abs Immat Gran (auto) 0.02 H (0.00-0.00) K/mm3 Absolute Neuts (auto) 5.07 (1.70-7.20) K/mm3 Absolute Nucleated RBC 0.00 (0.00-0.00) K/mm3 Nucleated RBC % 0.0 (0-0.0) % % Immature Plt Fraction 2.0 (1.0-7.0) % PT 10.8 (9.50-12.1) Seconds INR 1.0 APTT 30.5 (23.9-30.70) Sec Sodium 138 (137-145) mmol/L Potassium 5.3 H (3.4-5.0) mmol/L Chloride 108 H (98-107) mmol/L Carbon Dioxide 15 L (22-30) mmol/L Anion Gap 15 H (4-12) mmol/L BUN 40 H (9-20) mg/dL Creatinine 2.42 H (0.7-1.3) mg/dL Estim Creat Clear Calc 23 ml/min Estimated GFR 26 L (59 - ) Glucose 295 H (65-110) mg/dL POC Capillary Glucose 261 H (65-105) mg/dl Hemoglobin A1c 6.6 H (<5.7) % Calculated Osmolality 306 H (285-295) mOsm/kg Lactic Acid 2.3 H (0.7-2.0) mmol/L Calcium 8.6 (8.4-10.2) mg/dL Magnesium 1.2 L (1.6-2.3) mg/dL Total Bilirubin 0.4 (0.2-1.3) mg/dL AST 23 (17-59) U/L ALT 15 (6-50) U/L Alkaline Phosphatase 89 (38-126) U/L Total Creatine Kinase 81 (55-170) U/L Troponin I < 0.012 (0.000-0.034) ng/mL Total Protein 7.6 (6.3-8.2) g/dL Albumin 4.4 (3.5-5.1) g/dL Influenza A (RT-PCR) Negative (Negative) Influenza B (RT-PCR) Negative (Negative) RSV (RT-PCR) Negative (Negative) SARS-CoV-2 RNA (RT-PCR) Negative (Negative) <William Abdalla MD - Last Filed: 09/25/25 07:07> Lab Results 09/25/25 09/25/25 Range/Units 07:10 07:11 WBC 6.5 (4.8-10.8) K/mm3 RBC 4.59 L (4.70-6.10) M/mm3 Hgb 11.9 L (12.4-15.3) g/dL Hct 39.7 (37.0-46.0) % MCV 86.5 (78.0-102.0) fL MCH 25.9 L (27.0-31.0) pg MCHC 30.0 L (32-36) g/dL RDW 14.4 (11.6-14.4) % Plt Count 134 L (150-420) K/mm3 MPV 10.5 (8.7-11.0) fl Immature Gran % (Auto) 0.3 H (0.0-0.0) % Neut % (Auto) 77.9 H (50.0-70.0) % Lymph % (Auto) 15.8 L (18.0-42.0) % [place] % (Auto) 4.5 (2.0-11.0) % Eos % (Auto) 0.9 L (1.0-6.0) % Baso % (Auto) 0.6 (0.0-1.0) % Lymph # (Auto) 1.03 L (1.10-4.50) K/mm3 [place] # (Auto) 0.29 (0.10-0.90) K/mm3 Eos # (Auto) 0.06 (0.02-0.50) K/mm3 Baso # (Auto) 0.04 (0.00-0.10) K/mm3 Abs Immat Gran (auto) 0.02 H (0.00-0.00) K/mm3 Absolute Neuts (auto) 5.07 (1.70-7.20) K/mm3 Absolute Nucleated RBC 0.00 (0.00-0.00) K/mm3 Nucleated RBC % 0.0 (0-0.0) % % Immature Plt Fraction 2.0 (1.0-7.0) % PT 10.8 (9.50-12.1) Seconds INR 1.0 APTT 30.5 (23.9-30.70) Sec Sodium 138 (137-145) mmol/L Potassium 5.3 H (3.4-5.0) mmol/L Chloride 108 H (98-107) mmol/L Carbon Dioxide 15 L (22-30) mmol/L Anion Gap 15 H (4-12) mmol/L BUN 40 H (9-20) mg/dL Creatinine 2.42 H (0.7-1.3) mg/dL Estim Creat Clear Calc 23 ml/min Estimated GFR 26 L (59 - ) Glucose 295 H (65-110) mg/dL POC Capillary Glucose 261 H (65-105) mg/dl Hemoglobin A1c 6.6 H (<5.7) % Calculated Osmolality 306 H (285-295) mOsm/kg Lactic Acid 2.3 H (0.7-2.0) mmol/L Calcium 8.6 (8.4-10.2) mg/dL Magnesium 1.2 L (1.6-2.3) mg/dL Total Bilirubin 0.4 (0.2-1.3) mg/dL AST 23 (17-59) U/L ALT 15 (6-50) U/L Alkaline Phosphatase 89 (38-126) U/L Total Creatine Kinase 81 (55-170) U/L Troponin I < 0.012 (0.000-0.034) ng/mL Total Protein 7.6 (6.3-8.2) g/dL Albumin 4.4 (3.5-5.1) g/dL Influenza A (RT-PCR) Negative (Negative) Influenza B (RT-PCR) Negative (Negative) RSV (RT-PCR) Negative (Negative) SARS-CoV-2 RNA (RT-PCR) Negative (Negative) <Juan Cassidy MD - Last Filed: 09/25/25 09:47> Imaging Data Radiologist's impression: ITS Impressions Chest X-Ray 09/25/25 07:06 IMPRESSION: 1. No significant acute cardiopulmonary findings given portable technique. Cervical Spine CT 09/25/25 07:21 IMPRESSION: HEAD: 1. No acute intracranial findings. C-SPINE: 1. No acute fracture. Head CT 09/25/25 07:21 IMPRESSION: HEAD: 1. No acute intracranial findings. C-SPINE: 1. No acute fracture. <William Abdalla MD - Last Filed: 09/25/25 07:07> ITS Impressions Chest X-Ray 09/25/25 07:06 IMPRESSION: 1. No significant acute cardiopulmonary findings given portable technique. Cervical Spine CT 09/25/25 07:21 IMPRESSION: HEAD: 1. No acute intracranial findings. C-SPINE: 1. No acute fracture. Head CT 09/25/25 07:21 IMPRESSION: HEAD: 1. No acute intracranial findings. C-SPINE: 1. No acute fracture. <Juan Cassidy MD - Last Filed: 09/25/25 09:47> Critical Care Time Critical Care Time Critical Care Time: No <Juan Cassidy MD - Last Filed: 09/25/25 09:47> Discharge Plan Discharge Clinical Impression: Hypomagnesemia, AAKASH (acute kidney injury), Acute hyperkalemia, Diabetic hypoglycemia <William Abdalla MD - Last Filed: 09/25/25 07:07> Patient Disposition: Still a Patient <William Abdalla MD - Last Filed: 09/25/25 07:07> Condition: Stable <William Abdalla MD - Last Filed: 09/25/25 07:07> Patient Language: Tajik <William Abdalla MD - Last Filed: 09/25/25 07:07> Prescriptions: No Action atorvastatin 80 mg Tablet 40 mg PO DAILY insulin glargine 100 unit/mL Solution 27 unit SUBCUT HS glipizide 10 mg Tablet 10 mg PO BID metformin 1,000 mg Tablet 1,000 mg PO BID tamsulosin 0.4 mg capsule 0.4 mg PO .pm lisinopril 20 mg tablet 20 mg PO DAILY mecobalamin (vitamin B12) 5,000 mcg tablet,disintegrating 5,000 mcg PO DAILY ferrous sulfate 325 mg (65 mg iron) tablet 325 mg PO DAILY neomycin-polymyxin B-dexameth 3.5mg/mL-10,000 unit/mL-0.1 % Drops,Suspension 2 drp RIGHT EYE QID Qty: 5 0RF levofloxacin 750 mg tablet 750 mg PO Q48H Qty: 6 0RF Rx Instructions: Take one tablet every other day for 6 doses <William Abdalla MD - Last Filed: 09/25/25 07:07> Follow-up/Referrals: UNKNOWN,DOCTOR [Primary Care Provider] <William Abdalla MD - Last Filed: 09/25/25 07:07>
[2025-09-25 07:22] LABS: Hematocrit 39.7 % (37.0-46.0); Hemoglobin 11.9 g/dL (12.4-15.3); Immature Granulocyte Percent A 0.3 % (0.0-0.0); Immature Platelet Fraction Pct 2.0 % (1.0-7.0); Lymphocytes Absolute Auto 1.03 K/mm3 (1.10-4.50); Mean Corpuscular HGB Conc 30.0 g/dL (32-36); Mean Corpuscular Hemoglobin 25.9 pg (27.0-31.0); Mean Corpuscular Volume 86.5 fL (78.0-102.0); Nucleated Red Blood Cells Absolute Auto 0.00 K/mm3 (0.00-0.00); Nucleated Red Blood Cells Perc 0.0 % (0-0.0); Platelet Count Result 134 K/mm3 (150-420); Red Blood Count 4.59 M/mm3 (4.70-6.10); White Blood Count 6.5 K/mm3 (4.8-10.8)
[2025-09-25 07:32] LABS: Alanine Aminotransferase 15 U/L (6-50); Albumin Level 4.4 g/dL (3.5-5.1); Alkaline Phosphatase 89 U/L (38-126); Anion Gap 15 mmol/L (4-12); Aspartate Amino Transferase 23 U/L (17-59); Bilirubin,Total 0.4 mg/dL (0.2-1.3); Blood Urea Nitrogen 40 mg/dL (9-20); Calcium 8.6 mg/dL (8.4-10.2); Carbon Dioxide 15 mmol/L (22-30); Chloride 108 mmol/L (98-107); Creatine Kinase 81 U/L (55-170); Estimated CRCL calculation 23 ml/min; Estimated Glomerular Filt Rate 26; Glucose 295 mg/dL (65-110); Osmolality Calculated 306 mOsm/kg (285-295); Potassium 5.3 mmol/L (3.4-5.0); Sodium 138 mmol/L (137-145); Total Protein 7.6 g/dL (6.3-8.2)
[2025-09-25 07:36] LABS: Hemoglobin A1C 6.6 % (<5.7)
[2025-09-25 07:42] LABS: Magnesium 1.2 mg/dL (1.6-2.3)
[2025-09-25 07:43] LABS: INR 1.0; Partial Thromboplastin Time 30.5 Sec (23.9-30.70); Prothrombin Time 10.8 Seconds (9.50-12.1)
[2025-09-25 07:55] LABS: Troponin I < 0.012 ng/mL (0.000-0.034)
[2025-09-25 07:57] LABS: Influenza A QL RT-PCR Negative (Negative); Influenza B QL RT-PCR Negative (Negative); RSV RNA, RT-PCR Negative (Negative); SARS-CoV-2 RNA PCR Negative (Negative)
[2025-09-25] MEDS: TETANUS,DIPHTHERIA,AC PERTUSSIS ADULT 0.5 ML (ADACEL) IM (08:00)
[2025-09-25] MEDS: MAGNESIUM SULF 2 GM/WATER 50ML 2 GM/50 ML BAG IVPB (10:30)
[2025-09-25] MEDS: SODIUM CHLORIDE 0.9% IV 1,000 ML 100 ML IV CONT ×2 (10:31→20:24)
--- NOTE | 2025-09-25 10:45 | ADMGEN ---
This patient, Jim Smallwood, was admitted to 2nd Floor Room 205-1. Patient/family oriented to hospital policies and general routines including ID bracelet, bed and alarms, visiting hours, pain management, procedures, bathroom and other care routines, personal items, smoking policy, room service/diet, and visiting hours. Information on how to activate the Rapid Response Team has been discussed. Patient/Family are encouraged to report perceived risks to care and to ask questions if they do not understand what they are told or what they should do.
--- OUTSIDE RECORDS SUMMARY | 2025-09-25 10:48 | XMS_ITS | Clinical Summary ---
Author Organization [facility] Address [address] [place] [address] Care Team Providers Care Shipping And Receiving Specialist Name Role Phone Dena Glasgow MD Primary [...] drink = 0.6 oz pur e alcohol) [facility] Utilities Answer Date Recorded In the [...] and heating? Not hard at all 10/08/2024 [facility] - Occupational Stress [...] any time in the past 12 m [facility], were you homeless or living in a senior care (including now)? 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
[2025-09-25] MEDS: INSULIN HUMAN LISPRO (*BKC) 1,000 UNITS/10 ML VIAL SUB-Q (12:12)
[2025-09-25 13:28] LABS: Add Urine Microscopic? YES; Appearance Urine Clear (Clear); Glucose Urine UA 1+ (Negative); Leukocyte Esterase Ur Trace LEU/UL (Negative); Nitrate Urine Negative (Negative); Specific Grav Ur 1.020 (1.010-1.020)
--- OUTSIDE RECORDS SUMMARY | 2025-09-25 14:54 | XMS_ITS | Clinical Summary ---
Author Organization [facility] Address [address] [place] [address] Care Team Providers Care Tack Puller Machine Name Role Phone Dena Glasgow MD Primary [...] drink = 0.6 oz pur e alcohol) [facility] Utilities Answer Date Recorded In the [...] and heating? Not hard at all 10/08/2024 [facility] Occupat ional Health - Occupational Stress [...] any time in the past 12 m [facility], were you homeless or living in a alf (including now)? 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
[2025-09-25] MEDS: DOCUSATE SODIUM 100 MG CAPSULE PO (16:59)
[2025-09-25] MEDS: TAMSULOSIN HCL 0.4 MG CAPSULE PO (16:59)
[2025-09-25] MEDS: INSULIN GLARGINE (*BKC) 1,000 UNITS/10 ML VIAL 14 UNITS SUB-Q (21:48)
[2025-09-26] VITALS: BP 110/63; PULSE 81; RESP 16; TEMP 36.9; O2SAT 91
[2025-09-26 05:31] LABS: Hematocrit 32.9 % (37.0-46.0); Hemoglobin 10.3 g/dL (12.4-15.3); Immature Granulocyte Percent A 0.4 % (0.0-0.0); Lymphocytes Absolute Auto 1.73 K/mm3 (1.10-4.50); Mean Corpuscular HGB Conc 31.3 g/dL (32-36); Mean Corpuscular Hemoglobin 26.7 pg (27.0-31.0); Mean Corpuscular Volume 85.2 fL (78.0-102.0); Nucleated Red Blood Cells Absolute Auto 0.00 K/mm3 (0.00-0.00); Nucleated Red Blood Cells Perc 0.0 % (0-0.0); Platelet Count Result 127 K/mm3 (150-420); Red Blood Count 3.86 M/mm3 (4.70-6.10); White Blood Count 7.0 K/mm3 (4.8-10.8)
[2025-09-26 05:43] LABS: Anion Gap 8 mmol/L (4-12); Blood Urea Nitrogen 37 mg/dL (9-20); Calcium 8.0 mg/dL (8.4-10.2); Carbon Dioxide 18 mmol/L (22-30); Chloride 118 mmol/L (98-107); Estimated CRCL calculation 27 ml/min; Estimated Glomerular Filt Rate 31; Glucose 136 mg/dL (65-110); Magnesium 1.7 mg/dL (1.6-2.3); Osmolality Calculated 308 mOsm/kg (285-295); Potassium 4.8 mmol/L (3.4-5.0); Sodium 144 mmol/L (137-145)
[2025-09-26] MEDS: SODIUM CHLORIDE 0.9% IV 1,000 ML 100 ML IV CONT (05:59)
[2025-09-26 08:00] VITALS: BP 139/74; PULSE 86; RESP 18; TEMP 36.1; O2SAT 96
[2025-09-26] MEDS: DOCUSATE SODIUM 100 MG CAPSULE PO (08:35)
[2025-09-26] MEDS: ATORVASTATIN 40 MG TABLET PO (08:35)
--- NOTE | 2025-09-26 13:38 | PM.SD2 ---
Same Day Admit/Disch: HPI History of Present Illness Chief complaint: DIABETIC HYPOGLYCEMIA, HYPERKALEMIA, HYPOMASE Narrative: Jim Smallwood is a 80 year old male with PMH of DM type 2, HTN, HLD BPH and iron deficiency anemia. Patient was brought to the ER after he was found this morning on the floor and had somewhat garbled speech. He also was noted to have a bump on his head with an abrasion. Patient's blood sugar was noted to be 69 and he was given D10 by EMS. It was unknown how long the patient had been on the floor when he was found. Initially patient's mental status was altered, but when his blood sugar improved he returned to his baseline mental status. In the ER patient had a head CT and cervical spine CT which showed no abnormality. Chest x-ray was without acute findings. Lab work showed potassium 5.3, BUN 40, creatinine 2.4, glucose 295, magnesium 1.2. Swab for Covid, RSV and influenza was negative. UA showed trace leukocyte esterase, 51-75 RBC and 4-6 WBC, no reflex to culture. Patient was admitted for further evaluation and treatment. [facility] Past Medical History Medical History (Updated 09/25/25 @ 09:47 by Juan Cassidy MD) Hypertension Type 2 diabetes mellitus Surgical History Surgical History History of phacoemulsification of cataract with intraocular lens implantation Social History Social History Smoking status: Former smoker Second hand tobacco smoke exposure: No Alcohol intake: never Substance use: never Substance use type: does not use Lack of Transportation: No Lack of Food: Never True Current Housing: I Have Housing Concerned About Future Housing: No Difficulty Paying Gas/Electric Bills: No Difficulty Paying for Meds: No Currently Unemployed: No Education: High School Diploma/GED Difficulty w/ Childcare or Family Care: No Spiritual care concerns: No Same Day Admit/Disch: Med Pre-admit Medications Home Medications ?Medication ?Instructions ?Recorded ?Confirmed ?Type atorvastatin 80 mg tablet 40 mg PO DAILY 01/25/20 09/25/25 History metformin 1,000 mg tablet 1,000 mg PO BID 01/25/20 09/25/25 History ferrous sulfate 325 mg (65 mg 325 mg PO DAILY 09/12/25 09/25/25 History iron) tablet lisinopril 20 mg tablet 20 mg PO DAILY 09/12/25 09/25/25 History mecobalamin (vitamin B12) 5,000 5,000 mcg PO DAILY 09/12/25 09/25/25 History mcg disintegrating tablet tamsulosin 0.4 mg capsule 0.4 mg PO .pm 09/12/25 09/25/25 History sxejzqux-smojnxsza-rxvqbnuz 3.5 2 drp RIGHT EYE QID #5 mL 09/13/25 09/25/25 Rx mg/mL-10,000 unit/mL-0.1% eye drops insulin glargine 100 unit/mL 22 unit (0.22 mL) subcut HS #3 mL 09/26/25 09/25/25 Rx subcutaneous solution Review of Systems Review of Systems All systems reviewed & are unremarkable except as noted in HPI and below Exam Const: General: comfortable and no acute distress HENMT: Face/Nose/Sinus: Normal nares present Mouth: Yes moist mucous membranes Eyes: General: appearance normal, both eyes and all related structures Sclera: sclerae normal Neck: Neck: supple Resp: Effort & Inspection: normal respiratory effort Auscultation: clear to auscultation bilaterally Cardio: Rate: regular rate Rhythm: regular rhythm GI: GI Palp: Yes Soft to palpation Auscultation: normal bowel sounds Skin: General skin exam: normal color and no rashes or lesions noted Neuro: General: gait normal Speech: normal speech Motor exam (neuro): 5/5 motor strength present throughout Sensory Exam: normal sensation Extrem: General: normal to inspection Psych: Mental Status: mental status grossly normal Affect: normal affect DS: Data Data Completed and Pending Pending studies at discharge: blood cultures x 2 sets Labs on day of discharge: Labs from last 24 hours 09/26/25 09/26/25 09/26/25 11:32 08:03 05:26 WBC 7.0 RBC 3.86 L Hgb 10.3 L Hct 32.9 L MCV 85.2 MCH 26.7 L MCHC 31.3 L RDW 14.3 Plt Count 127 L MPV 9.9 Immature Gran % (Auto) 0.4 H Neut % (Auto) 63.0 Lymph % (Auto) 24.7 [place] % (Auto) 7.6 Eos % (Auto) 3.4 Baso % (Auto) 0.9 Lymph # (Auto) 1.73 [place] # (Auto) 0.53 Eos # (Auto) 0.24 Baso # (Auto) 0.06 Abs Immat Gran (auto) 0.03 H Absolute Neuts (auto) 4.41 Absolute Nucleated RBC 0.00 Nucleated RBC % 0.0 Sodium 144 Potassium 4.8 Chloride 118 H Carbon Dioxide 18 L Anion Gap 8 BUN 37 H Creatinine 2.05 H Estim Creat Clear Calc 27 Estimated GFR 31 L Glucose 136 H POC Capillary Glucose 197 H 121 H Calculated Osmolality 308 H Calcium 8.0 L Magnesium 1.7 09/25/25 09/25/25 21:26 16:53 WBC RBC Hgb Hct MCV MCH MCHC RDW Plt Count MPV Immature Gran % (Auto) Neut % (Auto) Lymph % (Auto) [place] % (Auto) Eos % (Auto) Baso % (Auto) Lymph # (Auto) [place] # (Auto) Eos # (Auto) Baso # (Auto) Abs Immat Gran (auto) Absolute Neuts (auto) Absolute Nucleated RBC Nucleated RBC % Sodium Potassium Chloride Carbon Dioxide Anion Gap BUN Creatinine Estim Creat Clear Calc Estimated GFR Glucose POC Capillary Glucose 327 H 179 H Calculated Osmolality Calcium Magnesium Imaging Radiologist's impression: Chest X-Ray 09/25/25 07:06 IMPRESSION: 1. No significant acute cardiopulmonary findings given portable technique. Cervical Spine CT 09/25/25 07:21 IMPRESSION: HEAD: 1. No acute intracranial findings. C-SPINE: 1. No acute fracture. Head CT 09/25/25 07:21 IMPRESSION: HEAD: 1. No acute intracranial findings. C-SPINE: 1. No acute fracture. DS: Summary Hospital Course Reason for hospitalization: altered mental status Hospital Course: Jim Smallwood is a 80 year old male with PMH of DM type 2, HTN, HLD BPH and iron deficiency anemia. Patient was brought to the ER after he was found this morning on the floor and had somewhat garbled speech. He also was noted to have a bump on his head with an abrasion. Patient's blood sugar was noted to be 69 and he was given D10 by EMS. It was unknown how long the patient had been on the floor when he was found. Initially patient's mental status was altered, but when his blood sugar improved he returned to his baseline mental status. In the ER patient had a head CT and cervical spine CT which showed no abnormality. Chest x-ray was without acute findings. Lab work showed potassium 5.3, BUN 40, creatinine 2.4, glucose 295, magnesium 1.2. Swab for Covid, RSV and influenza was negative. UA showed trace leukocyte esterase, 51-75 RBC and 4-6 WBC, no reflex to culture. Patient was admitted for further evaluation and treatment. While in the hospital for evaluation patient received IV fluids. His home glipizde and metformin were held. His glargine dose was reduced. Patient's mental status remained stable and he was alert and oriented x 4. Patient's blood sugars remained stable during his admission. Patient was recommended to stop glipizde and avoid medications from this class as they cause hypoglycemia. Patient was instructed to reduce his insulin glargine dose on discharge. Patient's renal function returned to his baseline, potassium and magnesium levels improved. Patient was discharged home and will follow up with his PCP within 1-2 weeks and will monitor his blood sugars 4 times per day and report his readings to his PCP. Time Spent with Patient Time attestation: Total time spent providing and/or coordinating discharge services: 35 Minutes DS: Admitting Diagnosis Discharge Date 09/26/2025 Admitting Diagnosis Diabetic hypoglycemia Acute hyperkalemia AAKASH hypomagnesemia HTN DM type 2 DS: Discharge Diagnosis Discharge Diagnosis (1) Diabetic hypoglycemia: Code(s): E11.649 - Type 2 diabetes mellitus with hypoglycemia without coma Status: Acute (2) Acute hyperkalemia: Code(s): E87.5 - Hyperkalemia Status: Acute (3) AAKASH (acute kidney injury): Code(s): N17.9 - Acute kidney failure, unspecified Status: Acute (4) Hypomagnesemia: Code(s): E83.42 - Hypomagnesemia Status: Acute (5) Hypertension: Code(s): I10 - Essential (primary) hypertension Status: Acute (6) Type 2 diabetes mellitus: Code(s): E11.9 - Type 2 diabetes mellitus without complications Status: Acute Discharge Plan Discharge Attending physician on discharge: Romario Crawford Consulting providers: Lois Rodriges; Ryan Steven; Oscar,Mason Lunsford Discharging Clinician: Lois Rodriges Patient Disposition: Home Activity: as tolerated Diet: diabetic Discharge Instructions: Please schedule an appointment with the project management advisor in [place], [place] for management of your diabetes and for a periodicals clerk consult. Please monitor your blood sugar before meals and at bedtime. Please ask your PCP about a continuous glucose monitor at your follow up appointment. Patient Instructions: Antibiotic Form, Hypoglycemia in a Person with Diabetes (DC), Fall Prevention for Older Adults (DC), Hyperkalemia (DC), Fall Prevention (DC) Patient Language: [place] Islander Stand Alone Forms: General Discharge Information Follow-up/Referrals: UNKNOWN,DOCTOR [Primary Care Provider] Referral Note: call your PCP at the [facility] for a follow up appointment in the next 1-2 weeks. Discharge Medications: Continued atorvastatin 80 mg Tablet 40 mg PO DAILY metformin 1,000 mg Tablet 1,000 mg PO BID tamsulosin 0.4 mg capsule 0.4 mg PO .pm lisinopril 20 mg tablet 20 mg PO DAILY mecobalamin (vitamin B12) 5,000 mcg tablet,disintegrating 5,000 mcg PO DAILY ferrous sulfate 325 mg (65 mg iron) tablet 325 mg PO DAILY neomycin-polymyxin B-dexameth 3.5mg/mL-10,000 unit/mL-0.1 % Drops,Suspension 2 drp RIGHT EYE QID Qty: 5 0RF Changed insulin glargine 100 unit/mL Solution 22 unit SUBCUT HS Qty: 3 0RF Discontinued glipizide 10 mg Tablet 10 mg PO BID Date of admission: 09/25/25 09:47 Primary Care Provider: UNKNOWN,DOCTOR Admitting Provider: Romario Crawford Attending physician on admission: Romario Crawford Condition: Stable
--- NOTE | 2025-09-26 14:24 | PC.NURSE ---
1405 dc to son and private auto. both voice an understanding. changes in insulin doses.
--- NOTE | 2025-09-27 09:43 | PC.NURSE ---
Discharge call back completed, doing well, stopped his glipizide as instructed and sugars have been above 100, no questions or concerns voiced.
== END 2025-09-26 14:05 | disposition home or self-care (01) ==
LOC: CHSED 09:47 → CHS2ND 10:22
PROVIDERS: Emergency Medicine; Nurse Practitioner Family; Admitting Provider Internal Medicine; Emergency Provider Emergency Medicine; Visit Provider Internal Medicine
DX: E11.649 Type 2 diabetes mellitus with hypoglycemia without coma (principal); S00.01XA Abrasion of scalp, initial encounter; R22.0 Localized swelling, mass and lump, head; W18.30XA Fall on same level, unspecified, initial encounter; I45.2 Bifascicular block; I10 Essential (primary) hypertension; N17.9 Acute kidney failure, unspecified; E83.42 Hypomagnesemia; E78.5 Hyperlipidemia, unspecified; R32 Unspecified urinary incontinence; Z23 Encounter for immunization; Z98.49 Cataract extraction status, unspecified eye; Z96.1 Presence of intraocular lens; Z79.84 Long term (current) use of oral hypoglycemic drugs; Z79.4 Long term (current) use of insulin; Z79.2 Long term (current) use of antibiotics; Z87.891 Personal history of nicotine dependence; Z20.822 Contact with and (suspected) exposure to COVID-19
CPT/HCPCS: 36415; 70450; 71045; 72125; 80048; 80053; 81001; 82550; 82948; 83036; 83605; 83735; 84484; 85025; 85055; 85610; 85730; 87040; 87637; 90471; 90715; 93005; 96361; 96365; 96366; 97161; 97530; 99285; A9270; G0378; J1815; J3475; J7030